=== PATIENT | male | born 1980 | race Caucasian/White ===

== ENCOUNTER 2017-02-04 15:04 | Emergency (ER) | payer OTHER ==
[~2017-02-04] VITALS: Ht 175.3 cm; Wt 107.5 kg
[2017-02-04 15:09] VITALS: TEMP 36.7; Ht 175.3 cm; Wt 107.5 kg
--- NOTE | 2017-02-04 16:00 | EMERGENCY ROOM VISIT NOTE ---
History First contact with patient: 15:40 Chief Complaint: RASH Stated Complaint: RASH History of Present Illness The patient is a 36 year old male who presents to the Emergency Room with complaints of rash which appeared on Wednesday, starting on the shaft of his penis and scrotum. It is very itchy, but not painful or burning. The rash has spread in clusters to groin, stomach, wrists, neck, face. Patient feels it is via touch. Currently experiencing significant scrotal and penile swelling, but denies dysuria, or inability to void (although he states his stream is no longer uniform, as if swelling is closing path intermittently) [place] on [place] when it started. States there were lots of bugs, but otherwise denies, contact with poison chas. and friends have no similar lesions. No fevers, changes in BM, URTI Sx. Has not had sexual intercourse since, morning erection is only half firm. No discharge from the urethra. No discharge from the rash Is using athlete's foot cream since rash started in the groin, but has not noted improvement Not taking an analgesics No throat swelling or difficulty breathing. No immune system issues, or fam hx of autoimmune conditions. Review of Systems See HPI for pertinent positives and negatives. A total of ten systems were reviewed and were otherwise negative. Past Medical/Surgical History Medical Problems: (1) No significant past medical history Social History Smoking Status: Never Smoker Smokeless Tobacco Use: No Alcohol Use: occasionally Drug Use: none Marital Status: Housing Status: lives with significant other Current/Historical Medications Scheduled Prednisone (Prednisone Tab), 0 PO DAILY Physical Exam Vital Signs Date Time Temp Pulse Resp B/P (MAP) Pulse Ox O2 Delivery O2 Flow Rate FiO2 02/04/17 16:50 72 16 143/95 96 02/04/17 15:09 36.7 87 18 135/96 96 Room Air Physical Exam GENERAL: Alert, well appearing, thin, sitting in bed, mild distress, non-toxic HEAD: NC/AT. No sinus tenderness. EYES: PERRL, EOMI, normal conjunctiva OROPHARYNX: no exudate, no erythema, lips, buccal mucosa, and tongue normal and mucous membranes are dry NECK: Supple, no nuchal rigidity, no adenopathy, non-tender LUNGS: Clear to auscultation. Normal chest wall mechanics, good air entry. No crepitations, crackles, or wheezes HEART: S1 and S2 normal, no murmurs ABDOMEN: abdomen soft, non-tender, normo-active bowel sounds, no masses, no rebound or guarding. BACK: Back is symmetrical on inspection, no deformities, no midline tenderness, no CVA tenderness. : Gross scrotal and penile swelling. Mildly tender testes. No vesicular lesions or meatal discharge. SKIN: Warm, pink, dry. Erythematous, blanching patches on left side of penis, left groin, left neck, left cheek and anabaptist, right wrist, abdomen. None on back , a few spots on the leg. No active discharge. EXTREMITIES: Grossly normal. No pitting edema. Calves non tender. Strength 5/5 bilaterally. NEURO: Alert, Ox3. No focal deficits. Normal sensorium, cranial nerves II-XII grossly intact, normal speech. PSYCH: Mood and affect appropriate. Medical Decision & Procedures Medications Administered Medications (Trade) Dose Ordered Sig/Hernesto Route Start Time Stop Time Status Last Admin Dose Admin Prednisone (PredniSONE TAB) 60 mg NOW STAT PO 02/04/17 16:28 02/04/17 16:30 DC 02/04/17 16:36 60 MG Diphenhydramine HCl (Benadryl Cap) 50 mg NOW STAT PO 02/04/17 16:28 02/04/17 16:30 DC 02/04/17 16:36 50 MG Medical Decision Prior records/ancillary studies reviewed. Triage Nursing notes reviewed. Additional history obtained from patient and . The patient's history was concerning for a rash. Differential diagnosis: Etiologies such as contact dermatitis, viral exanthem, urticaria, allergic reaction, Wang-Rivera syndrome, toxic epidermal necrolysis, erythema multiforme, cellulitis, scabies, HSV, varicella, zoster, eczema, staph scalded skin syndrome, fungal infection, as well as others were entertained. Physical examination: Rash likely spread by contact from hand ER treatment provided: Benedryl and prednisone On reassessment the patient felt better. The etiology for the patient's rash appears to be consistent with urticarial contact dermatitis. By the evaluation outlined above emergent etiologies such as Wang-Rivera syndrome, toxic epidermal necrolysis, erythema multiforme, cellulitis, scabies, HSV, varicella, zoster, staph scalded skin syndrome, urticaria, allergic reaction, as well as others were deemed relatively unlikely. The patient and were informed about the findings as listed above. All questions were answered. Return instructions were outlined and the patient was discharged in stable condition. Outpatient prescription management: Prolonged prednisone taper and scheduled benadryl for first few days Referral: The patient was referred back to their primary care physician for follow-up in 2 -3 days for a recheck of the current condition. Impression Primary Impression: Contact dermatitis Departure Information Dispostion Home / Self-Care Condition GOOD Prescriptions Prednisone (Prednisone Tab) 20 Mg Tab 0 PO DAILY, #16 TAB 3 TAB DAILY x 2 DAYS, 2 TABS DAILY x 2 DAYS, 1.5 TAB DAILY x TWO DAYS, 1 TAB DAILY x 2 DAYS, THEN 1/2 TAB DAILY x 2 DAYS. Prov: Alka. Larsen MD 02/04/17 Referrals No Doctor, Assigned (PCP) Patient Instructions [facility] Resident Tracking Resident Involvement: Resident Care Provided Care Provided: Adult ED
--- NOTE | 2017-02-04 16:29 | EMERGENCY ROOM VISIT NOTE ---
History Report prepared by Batsheva: May Dalton Under the Supervision of: Dr. Travis Kerns M.D. First contact with patient: 15:41 Chief Complaint: RASH Stated Complaint: RASH History of Present Illness The patient is a 36 year old male who presents to the Emergency Room with complaints of a worsening rash in his groin area. He states the rash started on the shaft of his penis but has spread to his arms, stomach, neck and face. The rash is itchy and edematous. Anti-fungal cream has provided no relief. The patient denies using any new detergents or creams. He notes he visited his in- laws farm last weekend in [place], [place], and could have been in contact with something then. The patient denies any chronic medical problems. Source of History: patient Onset: last weekend Position: other (groin) Quality: other (itching) Timing: worsening Modifying Factors (Relieving): other Review of Systems See HPI for pertinent positives & negatives. A total of 10 systems reviewed and were otherwise negative. Past Medical & Surgical Medical Problems: (1) No significant past medical history Social History Smoking Status: Never Smoker Smokeless Tobacco Use: No Alcohol Use: occasionally Drug Use: none Marital Status: Housing Status: lives with significant other Occupation Status: employed Current/Historical Medications Scheduled Prednisone (Prednisone Tab), 0 PO DAILY Allergies Coded Allergies: No Known Allergies (Unverified , 02/04/17) Physical Exam Vital Signs Date Time Temp Pulse Resp B/P (MAP) Pulse Ox O2 Delivery O2 Flow Rate FiO2 02/04/17 16:50 72 16 143/95 96 02/04/17 15:09 36.7 87 18 135/96 96 Room Air Physical Exam GENERAL: Patient is a healthy-appearing well-nourished 36 year old male HEAD: Normocephalic atraumatic EYES: Ocular movements intact pupils equal and react to light OROPHARYNX mucous membranes are moist no exudates present no erythema or edema present NECK: Supple no nuchal rigidity CHEST: Good equal expansion LUNGS: Clear and equal to auscultation CARDIAC: Normal S1 and S2 ABDOMEN: Soft nontender no guarding BACK: No CVA tenderness EXTREMITIES: No pain upon palpation normal muscle strength in all groups no clubbing cyanosis or edema NEURO: Patient is following commands is answering questions appropriately. Alert and oriented x3 Cranial Nerves 2-12 grossly intact SKIN: Urticarial, erythematous rash present on the penis, groin and left upper neck area Medical Decision & Procedures Medications Administered Medications (Trade) Dose Ordered Sig/Hernesto Route Start Time Stop Time Status Last Admin Dose Admin Prednisone (PredniSONE TAB) 60 mg NOW STAT PO 02/04/17 16:28 02/04/17 16:30 DC 02/04/17 16:36 60 MG Diphenhydramine HCl (Benadryl Cap) 50 mg NOW STAT PO 02/04/17 16:28 02/04/17 16:30 DC 02/04/17 16:36 50 MG ED Course 1622: Past medical records reviewed. The patient was evaluated in room B11B. A complete history and physical examination was performed. 1627: Benadryl 50 mg PO, Prednisone 60 mg PO. 1644: I reevaluated the patient. He is feeling well. I discussed his discharge instructions and he verbalized complete understanding and agreement. Medical Decision Prior records/ancillary studies reviewed. Triage Nursing notes reviewed. Additional history obtained from the patient's Mother. The patient's history was concerning for a rash. Differential diagnosis: Etiologies such as contact dermatitis, viral exanthem, urticaria, allergic reaction, Wang-Rivera syndrome, toxic epidermal necrolysis, erythema multiforme, cellulitis, scabies, HSV, varicella, zoster, eczema, staph scalded skin syndrome, fungal infection, as well as others were entertained. Resident Physician Supervision Note: I was present with Dr. Larsen during the history and exam. I discussed the case with the resident and agree with the findings and plan as documented in the note. Documented By: Travis Kerns Medication Reconcilliation Current Medication List: was personally reviewed by me Blood Pressure Screening Patient's blood pressure: Normal blood pressure Blood pressure disposition: Did not require urgent referral Impression Primary Impression: Contact dermatitis Scribe Attestation The scribe's documentation has been prepared under my direction and personally reviewed by me in its entirety. I confirm that the note above accurately reflects all work, treatment, procedures, and medical decision making performed by me. Departure Information Dispostion Home / Self-Care Prescriptions Prednisone (Prednisone Tab) 20 Mg Tab 0 PO DAILY, #16 TAB 3 TAB DAILY x 2 DAYS, 2 TABS DAILY x 2 DAYS, 1.5 TAB DAILY x TWO DAYS, 1 TAB DAILY x 2 DAYS, THEN 1/2 TAB DAILY x 2 DAYS. Prov: Alka. Larsen MD 02/04/17 Referrals No Doctor, Assigned (PCP) Patient Instructions Contact Dermatitis, My [facility] Additional Instructions You were seen in the ED today for an acute episode of urticarial rash likely spread by contact. Your vitals were noted to be stable. Upon discharge, we have put you on a steroid taper. Please continue the medication as prescribed. Additionally, for the next several days, take 50mg of Benadryl every 6 hours, then transition to as needed. This should provide significant relief from symtpoms. An over the counter calomine lotion can also be applied for relief from itching. Follow up with your PCP is recommended next week to assure recovery continues. If the rash returns upon completion of steroid, your PCP may put you on an even longer steroid taper. You have been examined and treated today on an emergency basis only. This is not a substitute for, or an effort to provide, complete comprehensive medical care. It is impossible to recognize and treat all injuries or illnesses in a single emergency department visit. It is therefore important that you make a follow up with your physician for close monitoring. We urge you to return to ER if similar symptoms return or if you develop worsening or persistent dizziness, vomiting, headache, fevers, chest pains, difficulty breathing, black or bloody stools, inability to void, slurred speech , numbness, weakness, visual changes, or as needed. Problem Qualifiers Primary Impression: Contact dermatitis Contact dermatitis type: unspecified Contact dermatitis trigger: unspecified trigger Qualified Codes: L25.9 - Unspecified contact dermatitis, unspecified cause
[2017-02-04] MEDS ORDERED: PRED20TA2 PO ×2 (16:34→16:43)
[2017-02-04 16:50] VITALS: BP 143/95; PULSE 72; O2SAT 96
== END 2017-02-04 16:51 | disposition home or self-care (01) ==
LOC: C.EDB 15:06
DX: L25.9 Unspecified contact dermatitis, unspecified cause (principal)